=== PATIENT | male | born 1985 | race Native Hawaiian/Other Pacific Islander ===

== ENCOUNTER 2022-02-02 11:16 | Emergency (ER) | payer OTHER ==
[2022-02-02 11:27] VITALS: BP 146/84
[2022-02-02] MEDS ORDERED: KETOROLAC 60 MG/2 ML VIAL IM STA (12:42)
--- NOTE | 2022-02-02 12:50 | ED Physician Documentation ---
History of Present Illness - Stated complaint Stated Complaint: BACK PAIN - Chief complaint Chief Complaint: Back Pain - Additonal information Additional information: 36-year-old male who is here camping on [facility] presents emergency department for evaluation of left low back pain with radiation down the leg. Symptoms began yesterday after lifting a garbage bag. He has a remote history of lumbar disc herniation after lifting in his teens. He reports to me that he knows he did not properly rehabbed the back and never really participated in physical therapy. He occasionally has back pain. He has no fevers. He is no saddle anesthesia loss of bowel or bladder function. No history of injection drug use cancer. He is not a diabetic. Review of Systems Constitutional: denies: Fever, Chills Throat: reports: Reviewed and negative Cardiac: reports: Reviewed and negative Respiratory: reports: Reviewed and negative GI: reports: Reviewed and negative : reports: Reviewed and negative Skin: reports: Reviewed and negative Musculoskeletal: reports: Back pain PD PAST MEDICAL HISTORY - Present Medications Home Medications: Ambulatory Orders Medication Instructions Recorded Confirmed No Known Home Medications 02/02/22 02/02/22 - Allergies Allergies/Adverse Reactions: Allergies Allergy/AdvReac Type Severity Reaction Status Date / Time No Known Drug Allergies Allergy Verified 02/02/22 11:27 PD ED PE EXPANDED - General General: Alert, No acute distress - Back Back: Soft tissue tenderness (Left lower lumbar paraspinous tenderness. Focal tenderness at the SI joint. Full forward flexion of the lower lumbar spine. Normal gait. Motor strength is 5 of 5 bilateral lower extremities. 2+ patellar reflexes), Straight leg raise + L, Other (Patient is able to walk on both heels and toes). No: Vertebral tenderness, CVA TTP right, CVA TTP left - GCS Eye Opening: Spontaneous Motor: Obeys Commands Verbal: Oriented Total: 15 Results - Vitals Vitals: Vital Signs - 24 hr 02/02/22 11:22 Temperature 36.3 C L Heart Rate 94 Respiratory 16 Rate Blood Pressure 146/84 H O2 Saturation 98 Oxygen O2 Source Room air PD MEDICAL DECISION MAKING - ED course Complexity details: considered differential, d/w patient ED course: 36-year-old male presents emergency department for evaluation of acute left lower back pain sustained when lifting heavy garbage bag yesterday. He does have a remote history of disc herniation after lifting when he was in his teens. He has no red flags on exam and a relatively benign exam with a normal gait and motor strength. There is some mild lumbar spinous tenderness especially at the SI joint with positive straight leg exam. I suspect he likely has mild sciatica. Patient was administered Toradol here in the emergency department which markedly improved symptoms. Patient is recommended Motrin to alternate with Tylenol. Advise follow-up with PCP and consideration of referral to physical therapy. Emergent and red flag return precautions discussed. Departure - Departure Disposition: Home, Self Care Clinical Impression: Low back pain with sciatica Qualifiers: Chronicity: acute Back pain laterality: left Sciatica laterality: sciatica of left side Qualified Code(s): M54.42 - Lumbago with sciatica, left side Condition: Stable Record reviewed to determine appropriate education?: Yes Instructions: ED Sciatica Comments: Jose you are seen today in the emergency department for pain in the left low back. I suspect that you have a condition called sciatica which is inflammation of the large nerve that runs down the low back and leg. In general I would like you to take 600 mg of Motrin with food 2-3 times a day or alternate with 500 mg of Tylenol. Most episodes of low back pain and sciatica will begin to resolve after 7 to 10 days. However if your symptoms or not improving, you develop fevers, you have been numbness in your genital area or lose control of your bowel or bladder function then please return immediately to the ER. In general in order to improve your symptoms I would like you to consider following up with your primary care doctor to obtain a referral to physical therapy.
== END 2022-02-02 13:39 | disposition home or self-care (01) ==
LOC: ED 11:16
DX: M54.42 Lumbago with sciatica, left side (principal)
CPT/HCPCS: 96372; 99282; 99283